=== PATIENT | male | born 1975 | race Two or more races ===

== ENCOUNTER → 2019-03-05 | Outpatient (CLI) | payer SELFPAY ==
[~2019-03-05] MED LIST: AMLO10 PO; ATOR40TA PO; Aspirin EC81 MG; CHLO25B PO; FENO160 PO; GABA100; Nitrostat0.3 MG; OXYACE5T PO; Prinivil10 MG PO
== END | disposition home or self-care (01) ==
LOC: LAB EV 15:58 → LAB SHORT 15:58
DX: S81.832D Puncture wound without foreign body, left lower leg, subsequent encounter (principal)
CPT/HCPCS: 87070; 87075; 87077; 87147; 87186; 87205

== ENCOUNTER 2021-06-28 11:12 | Emergency (ER) | payer OTHER ==
[~2021-06-28] VITALS: Ht 188 cm; Wt 129.3 kg
[2021-06-28 13:24] LABS: Influenza A, PCR NEGATIVE (NEGATIVE); Influenza B, PCR NEGATIVE (NEGATIVE); Resp Syncytial Virus, PCR POSITIVE (NEGATIVE); SARS-Cov-2 (COVID-19) PCR, MMC NEGATIVE (NEGATIVE)
[2021-06-28] MEDS ORDERED: LEVE500 PO (13:59)
[2021-06-28] MEDS ORDERED: CEPH500 PO (13:59)
[2021-06-28] MEDS ORDERED: HYDR1TAB94 PO (14:04)
== END 2021-06-28 14:08 | disposition left against medical advice (07) ==
LOC: ER 11:12
PROVIDERS: Emergency Medicine
DX: S02.82XA Fracture of other specified skull and facial bones, left side, initial encounter for closed fracture (principal); I10 Essential (primary) hypertension; Z79.899 Other long term (current) drug therapy; F17.200 Nicotine dependence, unspecified, uncomplicated; Z20.822 Contact with and (suspected) exposure to COVID-19; Y00.XXXA Assault by blunt object, initial encounter
CPT/HCPCS: 0241U; 70450; 70486; 71045; 72125; 93005; 93010; 99284-25; A9270